=== PATIENT | female | born 1985 ===

== ENCOUNTER 2022-03-04 09:55 | Emergency (ER) | payer OTHER ==
[2022-03-04 10:03] VITALS: BP 115/74; TEMP 97.9
[2022-03-04] MEDS ORDERED: SODIUM CHLORIDE 0.9% 1,000 ML IV STA (10:11)
--- NOTE | 2022-03-04 10:20 | ED ---
Female Urogenital HPI - General Chief complaint: Vaginal Bleeding Stated complaint: early , spotting Time Seen by Provider: 03/04/22 10:04 Source: patient, RN notes reviewed Mode of arrival: ambulatory Limitations: no limitations - History of Present Illness Initial comments: Patient is a 36-year-old female presenting to the emergency room with complaints of vaginal spotting ongoing for 2-3 days with some lower pelvic cramping and back pain intermittently. She states that this is her fifth with 2 full-term pregnancies alive purse without complications and 2 miscarriages previously. Her last resulted in a miscarriage. She is complaining of difficulty keeping fluids down with increased nausea throughout this and vomiting she denies any upper abdominal pain not related to pelvic cramping, diarrhea, chest pain, shortness of breath, headaches, dizziness, fevers or chills. She denies any concern regarding STD. She has not established with an UTILITY [employer]ES [employer] SERVICE MANAGER yet but is taking vitamins. She denies any other significant past medical history. - Related Data Previous Rx's Medication Instructions Recorded Cephalexin [Keflex] 500 mg PO Q12H 10 Days #20 cap 03/04/22 Allergies Allergy/AdvReac Type Severity Reaction Status Date / Time No Known Allergies Allergy Verified 03/04/22 10:03 Review of Systems ROS Statement: Those systems with pertinent positive or pertinent negative responses have been documented in the HPI. ROS Other: All systems not noted in ROS Statement are negative. Past Medical History Past Medical History: No Reported History History of Any Multi-Drug Resistant Organisms: None Reported Past Surgical History: No Surgical Hx Reported Past Psychological History: No Psychological Hx Reported Smoking Status: Never smoker Past Alcohol Use History: None Reported Past Drug Use History: None Reported General Exam Limitations: no limitations General appearance: alert, in no apparent distress Head exam: Present: atraumatic, normocephalic, normal inspection Eye exam: Present: normal appearance, PERRL, EOMI. Absent: scleral icterus, conjunctival injection, periorbital swelling ENT exam: Present: normal exam, mucous membranes moist Neck exam: Present: normal inspection, full ROM Respiratory exam: Present: normal lung sounds bilaterally. Absent: respiratory distress, wheezes, rales, rhonchi, stridor Cardiovascular Exam: Present: regular rate, normal rhythm, normal heart sounds. Absent: systolic murmur, diastolic murmur, rubs, gallop, clicks GI/Abdominal exam: Present: soft, normal bowel sounds. Absent: distended, tenderness, guarding, rebound, rigid Rectal exam: Present: deferred Extremities exam: Present: normal inspection. Absent: pedal edema, joint swelling Back exam: Present: normal inspection Neurological exam: Present: alert, oriented X3, CN II-XII intact Psychiatric exam: Present: normal affect, normal mood Skin exam: Present: warm, dry, intact, normal color. Absent: rash Course Vital Signs 03/04/22 03/04/22 10:00 12:35 Temperature 97.9 F Pulse Rate 86 72 Respiratory 20 16 Rate Blood Pressure 115/74 O2 Sat by Pulse 99 98 Oximetry Medical Decision Making - Medical Decision Making 36-year-old female presenting with complaints of vaginal spotting ongoing for a few days with some mild pelvic and cramping and lower back pain with history of previous miscarriages and concurrent of approximately 7 weeks. Will obtain OB ultrasound along with RHO typing, and hCG quantitative. Reporting of nausea and vomiting will obtain CBC along with BMP no fevers or indication for other diagnostic testing or laboratory studies. Will give IV fluid bolus. Laboratory studies reveal normal CBC and BMP. O+ blood type noted. Quantitative serum hCG 870021. Urinalysis consistent for urinary tract infection with moderate bacteria trace asked leukoesterase. OB ultrasound shows viable intrauterine consistent with known gestational age. Tiny subchorionic hemorrhage noted. Reviewed need for close follow-up given hemorrhage and treatment for UTI. Advise continued OB follow-up along with completion of antibiotic therapy. Will discharge home in stable condition with close UT[employer]GER follow-up. Case discussed with Dr. Miller. - Lab Data Result diagrams: 03/04/22 10:15 03/04/22 10:15 Lab Results 03/04/22 03/04/22 03/04/22 Range/Units 10:15 10:15 10:15 WBC (3.8-10.6) k/uL RBC (3.80-5.40) m/uL Hgb (11.4-16.0) gm/dL Hct (34.0-46.0) % MCV (80.0-100.0) fL MCH (25.0-35.0) pg MCHC (31.0-37.0) g/dL RDW (11.5-15.5) % Plt Count (150-450) k/uL MPV Neutrophils % % Lymphocytes % % Monocytes % % Eosinophils % % Basophils % % Neutrophils # (1.3-7.7) k/uL Lymphocytes # (1.0-4.8) k/uL Monocytes # (0-1.0) k/uL Eosinophils # (0-0.7) k/uL Basophils # (0-0.2) k/uL Sodium 137 (137-145) mmol/L Potassium 3.6 (3.5-5.1) mmol/L Chloride 101 (98-107) mmol/L Carbon Dioxide 27 (22-30) mmol/L Anion Gap 9 mmol/L BUN 8 (7-17) mg/dL Creatinine 0.65 (0.52-1.04) mg/dL Est GFR (CKD-EPI)AfAm >90 (>60 ml/min/1.73 sqM) Est GFR (CKD-EPI)NonAf >90 (>60 ml/min/1.73 sqM) Glucose 92 (74-99) mg/dL Calcium 8.9 (8.4-10.2) mg/dL HCG, Quant 923925.0 mIU/mL Urine Color Yellow Urine Appearance Cloudy H (Clear) Urine pH 6.5 (5.0-8.0) Ur Specific [place] 1.027 (1.001-1.035) Urine Protein Trace H (Negative) Urine Glucose (UA) Negative (Negative) Urine Ketones 2+ H (Negative) Urine Blood Negative (Negative) Urine Nitrite Positive H (Negative) Urine Bilirubin Negative (Negative) Urine Urobilinogen <2.0 (<2.0) mg/dL Ur Leukocyte Esterase Trace H (Negative) Urine WBC 3 (0-5) /hpf Ur Squamous Epith Cells 2 (0-4) /hpf Urine Bacteria Moderate H (None) /hpf Urine Mucus Many H (None) /hpf Blood Type O Positive Blood Type Recheck No Previous Record Bld Type Recheck Status ABR ONLY 03/04/22 Range/Units 10:15 WBC 7.2 (3.8-10.6) k/uL RBC 4.09 (3.80-5.40) m/uL Hgb 13.8 (11.4-16.0) gm/dL Hct 40.3 (34.0-46.0) % MCV 98.5 (80.0-100.0) fL MCH 33.8 (25.0-35.0) pg MCHC 34.3 (31.0-37.0) g/dL RDW 11.3 L (11.5-15.5) % Plt Count 234 (150-450) k/uL MPV 8.6 Neutrophils % 69 % Lymphocytes % 25 % Monocytes % 4 % Eosinophils % 1 % Basophils % 0 % Neutrophils # 5.0 (1.3-7.7) k/uL Lymphocytes # 1.8 (1.0-4.8) k/uL Monocytes # 0.3 (0-1.0) k/uL Eosinophils # 0.0 (0-0.7) k/uL Basophils # 0.0 (0-0.2) k/uL Sodium (137-145) mmol/L Potassium (3.5-5.1) mmol/L Chloride (98-107) mmol/L Carbon Dioxide (22-30) mmol/L Anion Gap mmol/L BUN (7-17) mg/dL Creatinine (0.52-1.04) mg/dL Est GFR (CKD-EPI)AfAm (>60 ml/min/1.73 sqM) Est GFR (CKD-EPI)NonAf (>60 ml/min/1.73 sqM) Glucose (74-99) mg/dL Calcium (8.4-10.2) mg/dL HCG, Quant mIU/mL Urine Color Urine Appearance (Clear) Urine pH (5.0-8.0) Ur Specific [place] (1.001-1.035) Urine Protein (Negative) Urine Glucose (UA) (Negative) Urine Ketones (Negative) Urine Blood (Negative) Urine Nitrite (Negative) Urine Bilirubin (Negative) Urine Urobilinogen (<2.0) mg/dL Ur Leukocyte Esterase (Negative) Urine WBC (0-5) /hpf Ur Squamous Epith Cells (0-4) /hpf Urine Bacteria (None) /hpf Urine Mucus (None) /hpf Blood Type Blood Type Recheck Bld Type Recheck Status - Radiology Data Radiology results: report reviewed, image reviewed OB ultrasound is interpreted by radiologist impression single viable intrauterine gestation with estimated gestational age of 7 weeks 1 day with an estimated due date of 10/20/2022. Tiny subchorionic hemorrhage. Close marleni veillance recommended. Disposition Clinical Impression: Subchorionic hemorrhage in first trimester, UTI (urinary tract infection) Disposition: HOME SELF-CARE Condition: Stable Instructions (If sedation given, give patient instructions): Urinary Tract Infection in (ED), Subchorionic Hemorrhage (ED) Additional Instructions: Please complete course of antibiotic therapy as prescribed. Please continue to take vitamin daily. Please establish and follow up with [employer]ICE MANAGER. Please return to the Emergency Department if symptoms worsen or any other concerns. Prescriptions: Cephalexin [Keflex] 500 mg PO Q12H 10 Days #20 cap Is patient prescribed a controlled substance at d/c from ED?: No Referrals: None,Stated [Primary Care Provider] - 1-2 days Time of Disposition: 11:38
[2022-03-04 10:32] LABS: Basophils % (A) 0 %; Eosinophils % (A) 1 %; HCT 40.3 % (34.0-46.0); HGB 13.8 gm/dL (11.4-16.0); Lymphocytes # (A) 1.8 k/uL (1.0-4.8); Lymphocytes % (A) 25 %; MCH 33.8 pg (25.0-35.0); MCHC 34.3 g/dL (31.0-37.0); MCV 98.5 fL (80.0-100.0); Mean Platelet Volume 8.6; Monocytes # (A) 0.3 k/uL (0-1.0); Monocytes % (A) 4 %; Neutrophils % (A) 69 %; Platelet Count 234 k/uL (150-450); RBC 4.09 m/uL (3.80-5.40); RDW 11.3 % (11.5-15.5); WBC 7.2 k/uL (3.8-10.6)
[2022-03-04 10:38] LABS: Appearance,Urine Cloudy (Clear); Bacteria,Urine Moderate /hpf; Bilirubin,Urine Negative (Negative); Blood,Urine Negative (Negative); Color,Urine Yellow; Glucose,Urine (UA) Negative (Negative); Ketones,Urine 2+ (Negative); Leukocyte Esterase,Urine Trace (Negative); Mucus,Urine Many /hpf; Nitrite,Urine Positive (Negative); PH, Urine 6.5 (5.0-8.0); Protein,Urine Trace (Negative); Specific Gravity,Urine 1.027 (1.001-1.035); Squamous Epithelial Cell,Urine 2 /hpf (0-4); Urobilinogen,Urine <2.0 mg/dL (<2.0); WBC,Urine 3 /hpf (0-5)
[2022-03-04 11:01] LABS: African American GFR (CKD) >90 (>60 ml/min/1.73 sqM); Anion Gap 9 mmol/L; Blood Urea Nitrogen 8 mg/dL (7-17); Calcium 8.9 mg/dL (8.4-10.2); Carbon Dioxide 27 mmol/L (22-30); Chloride 101 mmol/L (98-107); Glucose 92 mg/dL (74-99); Non-African American GFR(CKD) >90 (>60 ml/min/1.73 sqM); Potassium 3.6 mmol/L (3.5-5.1); Sodium 137 mmol/L (137-145)
--- NOTE | 2022-03-04 11:25 | US ---
EXAMINATION TYPE: Transabdominal DATE OF EXAM: 03/04/2022 11:12 AM COMPARISON: NONE CLINICAL HISTORY: pain. Pain and spotting. Hx 2 miscarriages. . EXAM PERFORMED: Transabdominal (TA) EXAM MEASUREMENTS: GESTATIONAL AGE / DATING Physician Established: Not yet established Dates by LMP: (7 weeks/2 days) EDC: 10/19/2022 Dates by First Scan: This is first scan. Dates by Current Scan for: (7 weeks/1 day) EDC: 10/20/2022 MATERNAL ANATOMY Uterus: 11.3 x 7.7 x 5.3 cm. Anteverted. Right Ovary: 3.2 x 1.6 x 2.1 cm. Left Ovary: 3.9 x 2.8 x 2.7 cm. Anechoic area seen: 2.1 x 2.0 x 1.8 cm. Post CDS / Adnexa: Appear wnl Presence of free fluid: None seen. Presence of corpus luteal cyst: Possible within left ovary- anechoic area seen: 2.1 x 2.0 x 1.8 cm. Presence of subchorionic bleed: Heterogeneous area seen adjacent to the gestational sac: 0.4 x 0.3 x 1.3 cm. GESTATION / SURVEY CRL: 1.03 cm. (7 weeks/1 day) Yolk Sac (normal less than 6mm): 2.8 mm. Heart Rate: 143 bpm Rhythm: Normal IUP: Viable IUP Date of LMP: 01/12/2022 Beta HcG (if available): Not available Single viable intrauterine gestation with tiny subchorionic hemorrhage adjacent to the gestational sa c. IMPRESSION: 1. Single viable intrauterine gestation with estimated gestational age of 7 weeks 1 day with estimat ed due date of 10/20/2022. 2. Tiny subchorionic hemorrhage. Close clinical surveillance is recommended.
[2022-03-04 12:47] VITALS: PULSE 72; RESP 16
== END 2022-03-04 12:48 | disposition home or self-care (01) ==
LOC: EC 09:55
DX: O20.9 Hemorrhage in early pregnancy, unspecified (principal); Z3A.01 Less than 8 weeks gestation of pregnancy
CPT/HCPCS: 36415; 76801; 80048; 81001; 84702; 85025; 86900; 86901; 96360; 96361; 99284